=== PATIENT | male | born 1965 | race Caucasian/White ===

== ENCOUNTER 2017-06-26 14:03 | Emergency (ER) | payer MEDICAID ==
[~2017-06-26] VITALS: Ht 162.6 cm; Wt 59.1 kg
[2017-06-26 15:23] VITALS: BP 129/84
== END 2017-06-26 15:33 | disposition home or self-care (01) ==
LOC: EMS 14:05
DX: Z93.3 Colostomy status (principal); C18.9 Malignant neoplasm of colon, unspecified; R03.0 Elevated blood-pressure reading, without diagnosis of hypertension; Z85.038 Personal history of other malignant neoplasm of large intestine
CPT/HCPCS: 99284